=== PATIENT | female | born 1955 | race Caucasian/White ===

== ENCOUNTER 2021-02-15 17:56 | Inpatient (IN) ==
[2021-02-15] MEDS ORDERED: FLUOCINOLONE ACETONIDE TP PRN (18:52)
[2021-02-15] MEDS ORDERED: D5% in Water 1,000 ML IVC PRN (18:56)
[2021-02-15] MEDS ORDERED: *HR* Dextrose 50 % in Water (Syg) 50 ML SYRINGE IVP PRN (18:56)
[2021-02-15] MEDS ORDERED: Dextrose Gel 15 GM/37.5 ML TUBE PO PRN ×2 (18:56)
[2021-02-15] MEDS ORDERED: Albuterol 2.5 MG/3 ML NEBULIZER IH SCH (20:00)
[2021-02-15] MEDS: Triamcinolone Acet 0.1% CRM 15 GM TUBE TP SCH (20:55)
[2021-02-15] MEDS: Cefdinir 300 MG CAPSULE PO SCH (20:56)
[2021-02-15] MEDS: Budesonide/Formoterol 160/4.5 1 PUFF INH IH SCH (21:01)
[2021-02-16] MEDS: *HR* Enoxaparin 40 MG/0.4 ML SYRINGE SQ SCH (06:13)
[2021-02-16 06:27] LABS: Basophils % 0.1 %; Eosinophils # 0.1 K/mcL (0.0-0.6); Eosinophils % 0.7 %; Hematocrit 36.3 % (35.3-44.9); Hemoglobin 10.7 g/dL (11.5-15.4); Immature Granulocytes % 0.7 % (0-4); Lymphocytes # 1.8 K/mcL (0.6-4.6); Lymphocytes % 21.2 %; Mean Corpuscular HGB Conc 29.5 g/dL (31.6-35.5); Mean Corpuscular Hemoglobin 27.4 pg (28.0-33.3); Mean Corpuscular Volume 92.8 fL (83.0-100.0); Mean Platelet Volume 10.9 fL (9.4-12.4); Monocytes # 0.6 K/mcL (0.0-1.3); Monocytes % 6.6 %; Platelet Count 182 K/mcL (140-400); Red Blood Count 3.91 M/mcL (3.82-4.97); Red Cell Distribution Width 14.2 % (11.5-14.5); Segmented Neutrophils % 70.7 %; White Blood Count 8.5 K/mcL (4.3-11.1)
[2021-02-16] MEDS: Acetaminophen 325 MG TABLET PO PRN ×2 (06:56→23:22)
[2021-02-16] MEDS: Insulin LISPRO 300 UNITS/3 ML VIAL SUBQ SCH ×3 (08:45→16:23)
[2021-02-16] MEDS: Aspirin Enteric Coated 81 MG Tablet PO SCH (08:49)
[2021-02-16] MEDS: amLODIPine 5 MG TABLET PO SCH (08:49)
[2021-02-16] MEDS: Cefdinir 300 MG CAPSULE PO SCH ×2 (08:50→23:21)
[2021-02-16] MEDS: Furosemide 40 MG TABLET PO SCH (08:50)
[2021-02-16] MEDS: Isosorbide MONOnitrate (24 HR) 30 MG TAB.ER.24H PO SCH (08:50)
[2021-02-16] MEDS: dexAMETHasone 4 MG TABLET PO SCH (08:50)
[2021-02-16] MEDS: Insulin DETEMIR 100 UNIT/ML X5UNITS SUBQ SCH ×2 (08:51→23:22)
[2021-02-16] MEDS ORDERED: NON-FORMULARY MEDICATION 1 EACH EACH (Ezetimibe [Zetia] 10 MG Tablet) PO SCH (09:00)
[2021-02-16] MEDS: Budesonide/Formoterol 160/4.5 1 PUFF INH IH SCH ×2 (09:14→20:51)
[2021-02-16 10:42] LABS: Alanine Aminotransferase 34 Units/L (7-52); Albumin 3.8 g/dL (3.5-5.7); Albumin/Globulin Ratio 1.5 (1.1-2.2); Alkaline Phosphatase 65 Units/L (34-104); Aspartate Amino Transferase 18 Units/L (13-39); BUN/Creatinine Ratio 33 (6-26); Bilirubin,Direct 0.2 mg/dL (0.0-0.2); Bilirubin,Indirect 0.4 mg/dL (0.0-1.0); Bilirubin,Total 0.6 mg/dL (0.3-1.0); Blood Urea Nitrogen 23 mg/dL (8-23); Carbon Dioxide > 45 mEq/L (23-29); Chloride 93 mEq/L (98-107); Globulin 2.6 g/dL (2.4-3.5); Glucose 152 mg/dL (70-105); Magnesium 2.1 mg/dL (1.6-2.6); Osmolality,Calculated 301 (280-300); Potassium 4.1 mEq/L (3.5-5.1); Sodium 142 mEq/L (136-145); Total Protein 6.4 g/dL (6.4-8.9); eGFR For African Americans > 60 (> 60); eGFR For Non-African Americans > 60 (> 60)
[2021-02-16] MEDS: acetaZOLAMIDE 250 MG TABLET PO SCH ×3 (15:15→23:21)
[2021-02-16] MEDS: Triamcinolone Acet 0.1% CRM 15 GM TUBE TP SCH (23:22)
[2021-02-17] MEDS: Acetaminophen 325 MG TABLET PO PRN ×2 (06:03→21:02)
[2021-02-17] MEDS: *HR* Enoxaparin 40 MG/0.4 ML SYRINGE SQ SCH (06:03)
[2021-02-17] MEDS: Aspirin Enteric Coated 81 MG Tablet PO SCH (10:14)
[2021-02-17] MEDS: acetaZOLAMIDE 250 MG TABLET PO SCH ×2 (10:14→21:03)
[2021-02-17] MEDS: Isosorbide MONOnitrate (24 HR) 30 MG TAB.ER.24H PO SCH (10:14)
[2021-02-17] MEDS: dexAMETHasone 4 MG TABLET PO SCH (10:14)
[2021-02-17] MEDS: Insulin LISPRO 300 UNITS/3 ML VIAL SUBQ SCH ×3 (10:15→17:29)
[2021-02-17] MEDS: Furosemide 40 MG TABLET PO SCH (10:15)
[2021-02-17] MEDS: amLODIPine 5 MG TABLET PO SCH (10:15)
[2021-02-17] MEDS: Cefdinir 300 MG CAPSULE PO SCH ×2 (10:15→21:02)
[2021-02-17] MEDS: Insulin DETEMIR 100 UNIT/ML X5UNITS SUBQ SCH ×2 (10:16→21:03)
[2021-02-17] MEDS: Budesonide/Formoterol 160/4.5 1 PUFF INH IH SCH ×2 (11:01→21:07)
[2021-02-17] MEDS: Triamcinolone Acet 0.1% CRM 15 GM TUBE TP SCH (17:32)
[2021-02-18] MEDS: *HR* Enoxaparin 40 MG/0.4 ML SYRINGE SQ SCH (04:44)
[2021-02-18 05:29] LABS: Hematocrit 34.2 % (35.3-44.9); Hemoglobin 10.3 g/dL (11.5-15.4); Mean Corpuscular HGB Conc 30.1 g/dL (31.6-35.5); Mean Corpuscular Hemoglobin 27.5 pg (28.0-33.3); Mean Corpuscular Volume 91.4 fL (83.0-100.0); Platelet Count 173 K/mcL (140-400); Red Blood Count 3.74 M/mcL (3.82-4.97); Red Cell Distribution Width 14.4 % (11.5-14.5); White Blood Count 7.6 K/mcL (4.3-11.1)
[2021-02-18 05:42] LABS: Alanine Aminotransferase 37 Units/L (7-52); Albumin 3.7 g/dL (3.5-5.7); Albumin/Globulin Ratio 1.5 (1.1-2.2); Alkaline Phosphatase 63 Units/L (34-104); Aspartate Amino Transferase 17 Units/L (13-39); BUN/Creatinine Ratio 28 (6-26); Bilirubin,Total 0.7 mg/dL (0.3-1.0); Blood Urea Nitrogen 20 mg/dL (8-23); Calcium 9.3 mg/dL (8.6-10.3); Carbon Dioxide 39 mEq/L (23-29); Chloride 97 mEq/L (98-107); Globulin 2.4 g/dL (2.4-3.5); Glucose 158 mg/dL (70-105); Osmolality,Calculated 296 (280-300); Potassium 3.4 mEq/L (3.5-5.1); Sodium 140 mEq/L (136-145); Total Protein 6.1 g/dL (6.4-8.9); eGFR For African Americans > 60 (> 60); eGFR For Non-African Americans > 60 (> 60)
[2021-02-18] MEDS: amLODIPine 5 MG TABLET PO SCH (10:09)
[2021-02-18] MEDS: dexAMETHasone 4 MG TABLET PO SCH (10:09)
[2021-02-18] MEDS: Furosemide 40 MG TABLET PO SCH (10:09)
[2021-02-18] MEDS: acetaZOLAMIDE 250 MG TABLET PO SCH ×2 (10:09→20:49)
[2021-02-18] MEDS: Isosorbide MONOnitrate (24 HR) 30 MG TAB.ER.24H PO SCH (10:09)
[2021-02-18] MEDS: Aspirin Enteric Coated 81 MG Tablet PO SCH (10:09)
[2021-02-18] MEDS: Insulin LISPRO 300 UNITS/3 ML VIAL SUBQ SCH ×3 (10:11→17:25)
[2021-02-18] MEDS: Insulin DETEMIR 100 UNIT/ML X5UNITS SUBQ SCH ×2 (10:11→20:52)
[2021-02-18] MEDS: Budesonide/Formoterol 160/4.5 1 PUFF INH IH SCH ×2 (10:22→20:08)
[2021-02-18] MEDS: Cefdinir 300 MG CAPSULE PO SCH (10:27)
[2021-02-18] MEDS: Triamcinolone Acet 0.1% CRM 15 GM TUBE TP SCH ×2 (20:50→20:54)
[2021-02-18] MEDS: Acetaminophen 325 MG TABLET PO PRN (20:50)
[2021-02-19] MEDS: *HR* Enoxaparin 40 MG/0.4 ML SYRINGE SQ SCH (04:21)
[2021-02-19] MEDS: dexAMETHasone 4 MG TABLET PO SCH (09:28)
[2021-02-19] MEDS: amLODIPine 5 MG TABLET PO SCH (09:28)
[2021-02-19] MEDS: Furosemide 40 MG TABLET PO SCH (09:29)
[2021-02-19] MEDS: Isosorbide MONOnitrate (24 HR) 30 MG TAB.ER.24H PO SCH (09:29)
[2021-02-19] MEDS: Insulin DETEMIR 100 UNIT/ML X5UNITS SUBQ SCH ×2 (09:29→21:12)
[2021-02-19] MEDS: Insulin LISPRO 300 UNITS/3 ML VIAL SUBQ SCH ×3 (09:30→17:17)
[2021-02-19] MEDS: Aspirin Enteric Coated 81 MG Tablet PO SCH (09:43)
[2021-02-19] MEDS: Budesonide/Formoterol 160/4.5 1 PUFF INH IH SCH ×2 (10:12→20:09)
[2021-02-19] MEDS: Acetaminophen 325 MG TABLET PO PRN (21:12)
[2021-02-19] MEDS: Triamcinolone Acet 0.1% CRM 15 GM TUBE TP SCH (21:49)
[2021-02-20] MEDS: *HR* Enoxaparin 40 MG/0.4 ML SYRINGE SQ SCH (04:59)
[2021-02-20] MEDS: Insulin DETEMIR 100 UNIT/ML X5UNITS SUBQ SCH ×2 (07:40→22:10)
[2021-02-20] MEDS: Insulin LISPRO 300 UNITS/3 ML VIAL SUBQ SCH ×3 (07:40→17:49)
[2021-02-20] MEDS: Aspirin Enteric Coated 81 MG Tablet PO SCH (07:44)
[2021-02-20] MEDS: dexAMETHasone 4 MG TABLET PO SCH (07:44)
[2021-02-20] MEDS: Isosorbide MONOnitrate (24 HR) 30 MG TAB.ER.24H PO SCH (07:44)
[2021-02-20] MEDS: amLODIPine 5 MG TABLET PO SCH (07:45)
[2021-02-20] MEDS: Furosemide 40 MG TABLET PO SCH (07:45)
[2021-02-20] MEDS: Budesonide/Formoterol 160/4.5 1 PUFF INH IH SCH ×2 (10:04→20:17)
[2021-02-20] MEDS: Triamcinolone Acet 0.1% CRM 15 GM TUBE TP SCH (23:51)
[2021-02-21 05:25] LABS: Hematocrit 30.4 % (35.3-44.9); Hemoglobin 9.2 g/dL (11.5-15.4); Mean Corpuscular HGB Conc 30.3 g/dL (31.6-35.5); Mean Corpuscular Hemoglobin 27.4 pg (28.0-33.3); Mean Corpuscular Volume 90.5 fL (83.0-100.0); Mean Platelet Volume 10.5 fL (9.4-12.4); Platelet Count 173 K/mcL (140-400); Red Blood Count 3.36 M/mcL (3.82-4.97); Red Cell Distribution Width 14.8 % (11.5-14.5); White Blood Count 6.2 K/mcL (4.3-11.1)
[2021-02-21 05:43] LABS: Alanine Aminotransferase 31 Units/L (7-52); Albumin 3.3 g/dL (3.5-5.7); Albumin/Globulin Ratio 1.7 (1.1-2.2); Alkaline Phosphatase 53 Units/L (34-104); Aspartate Amino Transferase 14 Units/L (13-39); BUN/Creatinine Ratio 44 (6-26); Bilirubin,Total 0.7 mg/dL (0.3-1.0); Blood Urea Nitrogen 28 mg/dL (8-23); Calcium 8.5 mg/dL (8.6-10.3); Carbon Dioxide 42 mEq/L (23-29); Chloride 98 mEq/L (98-107); Glucose 122 mg/dL (70-105); Osmolality,Calculated 301 (280-300); Potassium 3.6 mEq/L (3.5-5.1); Sodium 142 mEq/L (136-145); Total Protein 5.3 g/dL (6.4-8.9); eGFR For African Americans > 60 (> 60); eGFR For Non-African Americans > 60 (> 60)
[2021-02-21] MEDS: *HR* Enoxaparin 40 MG/0.4 ML SYRINGE SQ SCH (06:48)
[2021-02-21] MEDS: Insulin LISPRO 300 UNITS/3 ML VIAL SUBQ SCH ×3 (10:24→16:34)
[2021-02-21] MEDS: amLODIPine 5 MG TABLET PO SCH (10:26)
[2021-02-21] MEDS: Isosorbide MONOnitrate (24 HR) 30 MG TAB.ER.24H PO SCH (10:26)
[2021-02-21] MEDS: Furosemide 40 MG TABLET PO SCH (10:26)
[2021-02-21] MEDS: Aspirin Enteric Coated 81 MG Tablet PO SCH (10:26)
[2021-02-21] MEDS: Insulin DETEMIR 100 UNIT/ML X5UNITS SUBQ SCH ×2 (10:27→20:36)
[2021-02-21] MEDS: Budesonide/Formoterol 160/4.5 1 PUFF INH IH SCH ×2 (11:29→19:18)
[2021-02-21] MEDS: Triamcinolone Acet 0.1% CRM 15 GM TUBE TP SCH (17:16)
[2021-02-22] MEDS: *HR* Enoxaparin 40 MG/0.4 ML SYRINGE SQ SCH (05:19)
[2021-02-22 07:49] VITALS: BP 121/75; PULSE 84; RESP 18; TEMP 97.8; O2SAT 92
[2021-02-22] MEDS: Insulin LISPRO 300 UNITS/3 ML VIAL SUBQ SCH ×2 (08:21→11:56)
[2021-02-22] MEDS: amLODIPine 5 MG TABLET PO SCH (08:22)
[2021-02-22] MEDS: Isosorbide MONOnitrate (24 HR) 30 MG TAB.ER.24H PO SCH (08:22)
[2021-02-22] MEDS: Furosemide 40 MG TABLET PO SCH (08:22)
[2021-02-22] MEDS: Aspirin Enteric Coated 81 MG Tablet PO SCH (08:22)
[2021-02-22] MEDS: Insulin DETEMIR 100 UNIT/ML X5UNITS SUBQ SCH (08:23)
[2021-02-22] MEDS ORDERED: acetaZOLAMIDE 250 MG TABLET PO SCH (09:00)
[2021-02-22] MEDS: Budesonide/Formoterol 160/4.5 1 PUFF INH IH SCH (10:24)
== END 2021-02-22 13:45 | disposition home health service (06) | DRG 189 ==
LOC: INPGRE 17:56
PROVIDERS: ADMIT Family Medicine; ATTEND Family Medicine